=== PATIENT | male | born 1960 | race Caucasian/White ===

== ENCOUNTER 2016-10-09 04:59 | Emergency (ER) | payer SELFPAY ==
--- NOTE | 2016-10-09 05:18 | ED Physician Documentation ---
Abdominal Pain - HISTORIAN Historian: patient - HPI Stated Complaint: abd pain Chief Complaint: Abdominal Pain Onset: hours (7-8 hours) Duration: constant Timing: still present Severity: moderate Associated Symptoms: nausea, vomiting. denies: grossly bloody stools, chest pain Exacerbated by: nothing Relieved by: nothing Further Comments: yes (several hour history of nausea, vomiting, and severe epigastirc discomfort. No precipitating factor noted. No modifying factors noted.) - ROS GI/: denies: constipation (last BM several years ago), black stools - FAMILY HX Family History: no significant history - PAST HX Past History: other (COPD) Ischemic Bowel Risk Factors: none Other History: other (COPD) Surgeries/Procedures: cholecystectomy - REVIEWED ASSESSMENTS Nursing Assessment Reviewed: Yes Vitals Reviewed: Yes <Vahid Miguel - Last Filed: 10/09/16 06:51> - HISTORIAN Historian: patient - HPI Onset: hours Duration: constant Timing: still present Context: denies: out of country travel Severity: moderate Quality: aching Associated Symptoms: nausea, vomiting Exacerbated by: nothing Relieved by: nothing Further Comments: yes - ROS CONST: no problems - SOCIAL HX Smoking History: cigarettes - FAMILY HX Family History: no significant history - PAST HX Past History: other Ischemic Bowel Risk Factors: none Other History: other Surgeries/Procedures: cholecystectomy - REVIEWED ASSESSMENTS Nursing Assessment Reviewed: Yes Vitals Reviewed: Yes <JULIA HILLIARD - Last Filed: 10/09/16 07:43> - HPI Additonal Information: Last ate at noon yesterday. Last liquids at midnight. Huerta dGI cocktail in ER. ( JULIA HILLIARD) - PAST HX Home Medications: Ambulatory Orders Medication Instructions Recorded Albuterol Sulfate [ProAir 1 puff INH DIRECTED 10/09/16 RespiClick] Fluticasone/Salmeterol [Advair 1 puff INH DIRECTED 10/09/16 250-50 Diskus] Allergies/Adverse Reactions: Allergies Allergy/AdvReac Type Severity Reaction Status Date / Time aspirin Allergy Intermediate Hives Verified 10/09/16 05:11 codeine Allergy Intermediate Hives Verified 10/09/16 05:11 Penicillins Allergy Intermediate Throat Verified 10/09/16 05:11 Swelling shellfish derived Allergy Intermediate Throat Verified 10/09/16 06:44 Swelling - VITAL SIGNS Vital Signs: Vital Signs Temp Pulse Resp BP Pulse Ox 97.4 F L 67 18 134/65 97 10/09/16 04:59 10/09/16 04:59 10/09/16 04:59 10/09/16 04:59 10/09/16 04:59 (Vahid Miguel) (JULIA HILLIARD) Progress <Vahid Miguel - Last Filed: 10/09/16 06:51> <JULIA HILLIARD - Last Filed: 10/09/16 07:43> - Progress Progress: 0610 Still having some abd pain, GI cocktail did not seem to help much (Vahid Miguel) CT abdomen and pelvis without contrast Date of study: October 09, 2016. CLINICAL HISTORY: MIDDLE EPIGASTRIC PAIN, NAUSEA AND VOMITING X8 HOURS. CT DONE WITHOUT CONTRAST. PT ALLERGIC TO IODINE. (Hx) / EPIGASTRIC PAIN (DICOM Hx) TECHNIQUE: 5 mm contiguous axial images of the abdomen and pelvis non contrast. FINDINGS: The lung bases are clear. A small hiatal hernia is present. Abdomen: The liver, pancreas and spleen are normal in appearance. Surgical clips are present consistent with prior cholecystectomy. The kidneys are normal in size and surface contour. There is no evidence of renal or ureteral calculi identified. No hydronephrosis or perinephric stranding is evident. A 2.7 cm left renal upper pole cortical cyst is noted. The aorta is normal in caliber. The small and large bowel are nondistended. There is no evidence of free air or free fluid. Pelvis: And appendicolith is present in the neck of the appendix which is dilated measuring up 17 mm in diameter. There is no surrounding fluid or inflammatory stranding, however, the findings remain suspicious for acute appendicitis. The small and large bowel remain normal in appearance. The distal ureters and bladder are normal in appearance. There is no evidence of distal ureteral or intravesicular calculi. . There is no evidence of free air or free fluid. There is scattered diverticulosis of the descending and sigmoid colon. The remaining pelvic structures are within normal limits and the bones of the pelvis are intact. IMPRESSION: Dilated appendix with an appendicolith in the neck of the appendix suspicious for early acute appendicitis. Small hiatal hernia. Descending and sigmoid colon diverticulosis. The critical results were communicated to the emergency room at 7:25 AM. Electronically signed on Oct 09, 2016 7:26:24 AM CDT by: Mir Banegas [id number], accepted for transfer to [facility] ER per Dr. York, surgery. (JULIA HILLIARD) ED Results Lab/Radiology <Vahid Miguel - Last Filed: 10/09/16 06:51> <JULIA HILLIARD - Last Filed: 10/09/16 07:43> - Lab Results Lab Results: Lab Results 10/09/16 10/09/16 05:45 05:45 WBC 13.50 K/ul H K/ul (4.00-12.00) RBC 4.80 M/ul M/ul (3.90-5.20) Hgb 15.4 g/dL g/dL (12.0-18.0) Hct 44.7 % % (37.0-53.0) MCV 93.1 fl fl (80.0-100.0) MCH 32.1 pg pg (28.0-34.0) MCHC 34.5 g/dL g/dL (30.0-36.0) RDW 12.6 % % (11.3-14.3) Plt Count 231 K/mm3 K/mm3 (130-400) Neut % (Auto) 81.0 % H % (39.0-79.0) Lymph % (Auto) 12.1 % L % (16.0-50.0) Ward % (Auto) 3.0 % % (0.0-11.0) Eos % (Auto) 2.5 % % (0.0-6.8) Baso % (Auto) 0.4 (0.0-1.5) Neut # 10.9 # k/uL H # k/uL (1.4-7.7) Lymph # 1.6 # k/uL # k/uL (0.6-4.0) Ward # 0.4 # k/uL # k/uL (0.0-0.9) Eos # 0.3 # k/uL # k/uL (0.0-0.6) Baso # 0.0 # k/uL # k/uL (0.0-0.5) Reactive Lymphs % 1.0 % % (0.0-5.0) Reactive Lymphs # 0.1 # k/uL # k/uL (0.0-0.8) Sodium 137 mmol/L mmol/L (136-145) Potassium 3.8 mmol/L mmol/L (3.5-5.0) Chloride 105 mmol/L mmol/L (98-110) Carbon Dioxide 25 mmol/L mmol/L (20-32) BUN 15 mg/dL mg/dL (10-26) Creatinine 0.9 mg/dL mg/dL (0.4-1.5) Estimated Creat Clear 265 Est GFR ( Amer) > 60 (60 - ) Est GFR (Non-Af Amer) > 60 (60 - ) Glucose 160 mg/dL H mg/dL (70-99) Calcium 9.7 mg/dL mg/dL (8.5-10.5) Total Bilirubin 0.9 mg/dL mg/dL (0.2-1.2) AST 20 U/L U/L (0-41) ALT 15 U/L U/L (0-45) Alkaline Phosphatase 96 U/L U/L (46-116) Total Protein 7.4 g/dL g/dL (6.0-8.5) Albumin 4.6 g/dL g/dL (3.0-5.5) Amylase 45 U/L U/L (20-104) (JULIA HILLIARD) - Radiology Radiology Impressions: GI x-ray series: a lot of stool at the hepatic flexure, otherwise OK. Report Submission Date: Oct 09, 2016 6:47:04 AM CDT Patient Study Name: VINICIO MITCHELL Date: Oct 09, 2016 5:56:53 AM CDT Modality Type: CR Gender: M Description: CHEST,ABDOMEN : 56 Institution: [facility] Physician: VAHID MIGUEL - ZHANG Chest 1 view with abdominal series Date of Exam: History: AB SERIES- MIDDLE EPIGASTRIC PAIN X8 HOURS. (Hx) / EPIGASTRIC ABDOMINAL PAIN (DICOM Hx) / EPIGASTRIC ABDOMINAL PAIN (Pt comments) Findings: The cardiac and mediastinal silhouettes are normal. The lungs are clear. There is right lower lobe atelectasis. The trachea is midline and the aortic arch contour is normal. There is no evidence of free air. Gas and stool is present in the colon. The visualized bowel gas pattern is nonspecific. There are phleboliths in the pelvis. The osseous structures are normal. Impression: No acute cardiopulmonary abnormality. Unremarkable abdominal bowel gas pattern. Electronically signed on Oct 09, 2016 6:47:04 AM CDT by: Mir Banegas ([facility]) - Orders Orders: ED Orders Category Date Time Status Place Saline Lock/IV Now Care 10/09/16 05:28 Active ABD SERIES PA CHEST [RAD] Stat Exams 10/09/[address] ABD & PELVIS W/O CON Routine Exams 10/09/16 Taken AMYLASE Routine Lab 10/09/16 05:45 Completed CBC/PLATELET/DIFF Routine Lab 10/09/16 05:45 Completed CMP Routine Lab 10/09/16 05:45 Completed URINALYSIS Routine Lab 10/09/16 Uncollected 0.9 % Sodium Chloride [Normal Saline] 1,000 ml Med 10/09/16 05:30 Ordered IV Q10H Lidocaine 2%Visc 15ml [Xylocaine] Med 10/09/16 05:30 Discontinued 300 mg .ROUTE .STK-MED ONE Mag Hydrox/Al Hydrox/Simeth [Mylanta] 30 ml Med 10/09/16 05:25 Discontinued Lidocaine 2%Visc 15ml [Xylocaine] 20 mg PHENobarb/HYOSCY/ATROPINE/SCOP [] 10 ml PO NOW Magnesium Hydroxide/Al Hydrox [Maalox] Med 10/09/16 05:30 Discontinued 30 ml PO .STK-MED ONE Ondansetron HCl/Pf [Zofran 4 mg/2 ml] Med 10/09/16 05:33 Discontinued 4 mg .ROUTE .STK-MED ONE Ondansetron HCl/Pf [Zofran 4 mg/2 ml] Med 10/09/16 05:32 Discontinued 4 mg IVP NOW ONE Ondansetron HCl/Pf [Zofran 4 mg/2 ml] Med 10/09/16 06:18 Discontinued 4 mg IVP NOW ONE Pantoprazole Sodium [Protonix] Med 10/09/16 06:29 Discontinued 40 mg .ROUTE .STK-MED ONE Pantoprazole Sodium [Protonix] 40 mg Med 10/09/16 06:29 Discontinued 0.9 % Sodium Chloride [Sodium Chloride] 50 ml IV 1T fentaNYL CITRATE/PF [Duragesic] Med 10/09/16 06:19 Discontinued 100 mcg .ROUTE .STK-MED ONE fentaNYL CITRATE/PF [Duragesic] Med 10/09/16 06:17 Discontinued 50 mcg IVP NOW ONE (JULIA HILLIARD) Abdominal Pain Physical Exam - Physical Exam General Appearance: alert, moderate distress NECK: normal inspection, supple. No: lymphadenopathy, stiff neck RESPIRATORY: no resp distress, chest non-tender, breath sounds normal. No: wheezes, rales, rhonchi CVS: reg rate & rhythm, heart sounds normal, equal pulses, no murmur, no gallop ABDOMEN: soft, no organomegaly, normal bowel sounds, no distension, tenderness ( epigastric area). No: guarding BACK: normal inspection, CVA tenderness (R) (mild), CVA tenderness (L) (mild) SKIN: warm/dry, normal color EXTREMITIES: non-tender NEURO: oriented X3, CN's nml as tested, mood/affect nml <Vahid Miguel - Last Filed: 10/09/16 06:51> Discharge <Vahid Miguel - Last Filed: 10/09/16 06:51> Decision to Admit: NO Decision Time: 07:37 <JULIA HILLIARD - Last Filed: 10/09/16 07:43> Clincal Impression: Appendicitis Home Medications: Ambulatory Orders Albuterol Sulfate [ProAir RespiClick] 1 puff INH DIRECTED 10/09/16 Fluticasone/Salmeterol [Advair 250-50 Diskus] 1 puff INH DIRECTED 10/09/16 Condition: Good Disposition: XFER [facility]
[2016-10-09] MEDS ORDERED: MAG HYDROX/AL HYDROX/SIMETH 30 ML, Lidocaine 2%Visc 15ml 20 MG, PHENobarb/HYOSCY/ATROPI... PO ONE ×3 (05:25)
[2016-10-09] MEDS ORDERED: Lidocaine 2%Visc 15ml 20 MG/ML UDC ONE (05:30)
[2016-10-09] MEDS ORDERED: 0.9 % SODIUM CHLORIDE 1,000 ML IV SCH (05:30)
[2016-10-09] MEDS ORDERED: MAGNESIUM HYDROXIDE/AL HYDROX 30 ML UDC PO ONE (05:30)
[2016-10-09] MEDS ORDERED: ONDANSETRON HCL/PF 4 MG/ 2ML VIAL IVP ONE ×2 (05:32→06:18)
[2016-10-09] MEDS ORDERED: 0.9 % SODIUM CHLORIDE 1,000 ML IV ONE (05:33)
[2016-10-09] MEDS ORDERED: ONDANSETRON HCL/PF 4 MG/ 2ML VIAL ONE (05:33)
[2016-10-09 05:55] LABS: BASOPHILS % 0.4 (0.0-1.5); EOSINOPHILS % 2.5 % (0.0-6.8); MEAN CORPUSCULAR HEMOGLOBIN 32.1 pg (28.0-34.0); MEAN CORPUSCULAR VOLUME 93.1 fl (80.0-100.0); NEUTROPHILS # 10.9 # k/uL (1.4-7.7)
[2016-10-09 06:07] LABS: eGFR (African) > 60; eGFR (Non-African) > 60
[2016-10-09] MEDS ORDERED: fentaNYL CITRATE/PF 100 MCG/ 2ML AMP IVP ONE (06:17)
[2016-10-09] MEDS ORDERED: fentaNYL CITRATE/PF 100 MCG/ 2ML AMP ONE (06:19)
[2016-10-09] MEDS ORDERED: PANTOPRAZOLE SODIUM INJ. 40 MG VIAL ONE (06:29)
[2016-10-09] MEDS ORDERED: PANTOPRAZOLE SODIUM 40 MG in 0.9 % SODIUM CHLORIDE 50 ML IV ONE (06:29)
--- NOTE | 2016-10-09 06:58 | Diagnostic Imaging Report ---
VAHID MIGUEL [facility] [address] [facility] [address] [address] Report Submission Date: Oct 09, 2016 6:47:04 AM CDT Patient Study Name: VINICIO MITCHELL Date: Oct 09, 2016 5:56:53 AM CDT Modality Type: CR Gender: M Description: CHEST,ABDOMEN : 56 Institution: [facility] Physician: VAHID MIGUEL Chest 1 view with abdominal series Date of Exam: History: AB SERIES- MIDDLE EPIGASTRIC PAIN X8 HOURS. (Hx) / EPIGASTRIC ABDOMINAL PAIN (DICOM Hx) / EPIGASTRIC ABDOMINAL PAIN (Pt comments) Findings: The cardiac and mediastinal silhouettes are normal. The lungs are clear. There is right lower lobe atelectasis. The trachea is midline and the aortic arch contour is normal. There is no evidence of free air. Gas and stool is present in the colon. The visualized bowel gas pattern is nonspecific. There are phleboliths in the pelvis. The osseous structures are normal. Impression: No acute cardiopulmonary abnormality. Unremarkable abdominal bowel gas pattern. Electronically signed on Oct 09, 2016 6:47:04 AM CDT by: Mir MALHOTRA
[2016-10-09 08:14] VITALS: BP 116/62
--- NOTE | 2016-10-09 16:58 | Diagnostic Imaging Report ---
Name: VINICIO MITCHELL ~~ ~~ : 56 ~~ Acc #: [id number]~~ DOS: Oct 09, 2016 6:44:33 AM CDT ~~ Mod: CT\SR ~~ Desc: CT ABD & PELVIS W/O CO 2 of 2 VAHID MIGUEL~ [address] [address] ~ ~ ~ ~ Report Submission Date: Oct 09, 2016 7:26:24 AM CDT Patient ~ Study Name: VINICIO MITCHELL ~ Date: Oct 09, 2016 6:44:33 AM CDT ~ Modality Type: CT\SR Gender: M ~ Description: CT ABD & PELVIS W/O CO : 56 ~ Institution: [facility] Physician: VAHID MIGUEL ~ ~ ~ ~ CT abdomen and pelvis without contrast Date of study: October 09, 2016. CLINICAL HISTORY:~ MIDDLE EPIGASTRIC PAIN, NAUSEA AND VOMITING X8 HOURS. ~ CT DONE WITHOUT CONTRAST. PT ALLERGIC TO IODINE. (Hx) / EPIGASTRIC PAIN (DICOM Hx) TECHNIQUE: 5 mm contiguous axial images of the abdomen and pelvis non contrast.~ FINDINGS: The lung bases are clear. A small hiatal hernia is present. Abdomen: The liver, pancreas and spleen are normal in appearance. Surgical clips are present consistent with prior cholecystectomy. The kidneys are normal in size and surface contour. There is no evidence of renal or ureteral calculi identified. No hydronephrosis or perinephric stranding is evident. A 2.7 cm left renal upper pole cortical cyst is noted. The aorta is normal in caliber. The small and large bowel are nondistended. There is no evidence of free air or free fluid. Pelvis: And appendicolith is present in the neck of the appendix which is dilated measuring up 17 mm in diameter. There is no surrounding fluid or inflammatory stranding, however, the findings remain suspicious for acute appendicitis. The small and large bowel remain normal in appearance. The distal ureters and bladder are normal in appearance. There is no evidence of distal ureteral or intravesicular calculi. . There is no evidence of free air or free fluid. There is scattered diverticulosis of the descending and sigmoid colon. The remaining pelvic structures are within normal limits and the bones of the pelvis are intact. IMPRESSION: Dilated appendix with an appendicolith in the neck of the appendix suspicious for early acute appendicitis. Small hiatal hernia. Descending and sigmoid colon diverticulosis. The critical results were communicated to the emergency room at 7:25 AM. ~ Electronically signed on Oct 09, 2016 7:26:24 AM CDT by: Mir MALHOTRA
== END 2016-10-09 07:45 | disposition short-term general hospital (02) ==
LOC: ED 04:59
DX: K35.80 Unspecified acute appendicitis (principal)
CPT/HCPCS: 74022; 74176; 80053; 82150; 85025; A9270; J2405; J3010; J7030; 96361; 96374; 96375; 99284